=== PATIENT | female | born 1985 | race Caucasian/White ===

== ENCOUNTER 2022-02-16 07:24 | Day surgery (SDC) | payer OTHER, SELFPAY ==
[2022-02-10 12:37] VITALS: BMI 56.2
--- NOTE | 2022-02-14 16:40 | HP_ITS ---
DATE OF SERVICE: 02/16/2022 PREOPERATIVE DIAGNOSIS: Plantar fasciitis, left foot. PLANNED PROCEDURE: Left foot [place] plantar fasciotomy. PAST MEDICAL HISTORY: Hip, back and knee pain, depression, hiatal hernia, chronic sinusitis, chickenpox. CURRENT MEDICATIONS: Amlodipine, hydroxyzine, Lamictal, Lexapro, methyl folate, gabapentin, multivitamin, omeprazole, vitamin B6, B12, D3, Prilosec. SURGICAL HISTORY: Appendectomy. FAMILY HISTORY: Arthritis. SOCIAL HISTORY: Patient is a nonsmoker. Denies any illicit drug use. She is with no children. 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 ALLERGIES: METRONIDAZOLE AND INDOMETHACIN. HOSPITALIZATIONS: Denies. REVIEW OF SYSTEMS: Within normal limits. HISTORY OF PRESENT ILLNESS: This is a 36-year-old female presents with tenderness, chronic pain, sharp pain and stiffness of the proximal aspect of the plantar heel on the left foot. Pain has been present for quite a while several months. Walking has become difficult, especially since she tore her left meniscus in her knee. She has tried multiple conservative therapies including rest, diclofenac intervals, orthotics, change in shoes, physical therapy, E patch, and an MRI, which showed chronic plantar fasciitis. PHYSICAL EXAMINATION: GENERAL: Reveals a pleasant, alert, well-nourished well-developed, well-hydrated individual who demonstrates proper habitus and body hygiene, in no acute distress. She is oriented x3. NEUROLOGICAL: Reveals intact sensorium. Pain sensation is normal. Vibratory sensation is intact. Pinprick sensation is normal. Denies any anesthesias, burning paresthesias or tingling bilaterally. VASCULAR: DP and PT pulses are 3/4 bilaterally. Capillary refill is immediate to all digits. Skin temperature, elasticity and turgor is normal. Pigmentation is normal. There is no edema. DERMATOLOGICAL: Reveals normal texture, elasticity and turgor. There are no masses. Interspaces are clear. ORTHOPEDIC: Shows muscle strength 5/5 in a symmetrical fashion bilaterally heel pain on inspection reveals pain on palpation of the plantar fascia, the medial and central bands, intrinsic musculature, infracalcaneal bursa and medial calcaneal tubercle and pain with heel compression is present to the left heel. PLAN: Patient is scheduled for surgery for [place] plantar fasciotomy of the left foot procedure to treat the patient's foot problem was discussed in detail with the patient, reviewed the risks of the procedure versus not having the procedure. We discussed the potential surgical complications, which are included but not limited to pain, swelling, bleeding, scarring numbness infection delayed or nonhealing, recurrence, failure of the procedure, need for further surgery, and loss of toe, foot, life, or limb. Discussed the use of local and IV anesthesia and the usual postoperative course. No guarantees were given. The patient indicated a verbal understanding the above-mentioned surgery and questions were answered to her satisfaction. Patient would like to proceed with surgical treatment. She will obtain preoperative labs and medical clearance from her primary care physician. She is made to stop any and all blood thinners at least 1 week prior to surgery and aware that driving may not be allowed during a portion of the postoperative. The patient was given a prescription for Percocet. She can take Tylenol as well when not taking the Percocet for any postoperative pain, patient to avoid any nonsteroidal anti-inflammatories such as Motrin or ibuprofen and ice postoperatively. She will be partial weightbearing on the left foot in a surgical shoe or a cast boot, which patient has already. The patient will follow up in my office for all postoperative followup care. CHASE Lagos / [phone]
--- NOTE | 2022-02-15 09:32 | P.CONAN_ITS ---
Documented by User: Elma Londono NP 02/15/22 09:34 HPI - Anesthesia Eval Consult details Narrative: 36yo F for Left Plantar Fasciotomy w/ [place] PMF[facility] Past Medical History Medical History Anxiety Arthritis Fatty liver GERD (gastroesophageal reflux disease) History of palpitations HTN (hypertension) Incomplete right bundle branch block (RBBB) YONATHAN on CPAP Personal history of COVID-19 Wears contact lenses Surgical History Surgical History (Updated 02/10/22 @ 12:35 by Sherine Barrera RN) Hx of appendectomy Hx of cholecystectomy Social History Social History Are you a primary post acute care nurse practitioner to a significant other at home: No Do you presently have visiting nurse or other home services: No Patient Tobacco Use Status: Never used Tobacco Use of substances other than those prescribed or required for medical reasons: No Have you been hit, kicked, punched, or otherwise hurt by someone within the past year? If so, by whom?: No Are you DNR?: No Advance Directives: No Advance Directives Information Provided: Yes Advance Directives on File: No Patient : No FDLMP: 01/19/2022 : No Poor oral hygiene: No Meds Allergies Allergy/AdvReac Type Severity Reaction Status Date / Time indomethacin Allergy Intermediate Palpitations, Verified 02/16/22 07:36 n/v, diaphoresis metronidazole Allergy Hives Verified 02/16/22 08:09 Home Medications Medication Instructions Recorded Confirmed Last Taken Type L-Methylfolate DAILY 02/10/22 Unknown History Vitamin B-12 PO DAILY 02/10/22 Unknown History Vitamin D3 PO DAILY 02/10/22 Unknown History amlodipine 10 mg tablet 1 tab PO BEDTIME 02/10/22 02/10/22 Unknown History escitalopram oxalate 20 mg tablet 1.5 tab PO DAILY 02/10/22 02/10/22 02/16/22 06:00 History gabapentin 300 mg capsule 300 mg PO BID 02/10/22 02/10/22 02/16/22 06:00 History hydroxyzine HCl PO PRN 02/10/22 Unknown History lamotrigine 200 mg tablet 1 tab PO BEDTIME 02/10/22 02/10/22 Unknown History multivitamin 1 tab PO DAILY 02/10/22 02/10/22 Unknown History omeprazole 40 mg capsule,delayed 1 cap PO DAILY 02/10/22 02/10/22 02/16/22 06:00 History release Exam Exam Date and Time: February 15, [id number] Height,Weight and Vital Signs: Height 5 ft 8.5 in Weight 170.097 kg Narrative Narrative: EK NSR @ 73 Incomplete RBBB No significant change from 04/2021 Assessment and Plan Assessment Anesthesia Assessment: Chart Reviewed Documented by User: Cain Gillespie MD 02/16/22 09:01 [facility] Past Medical History Medical History Anxiety Arthritis Fatty liver GERD (gastroesophageal reflux disease) History of palpitations HTN (hypertension) Incomplete right bundle branch block (RBBB) YONATHAN on CPAP Personal history of COVID-19 Wears contact lenses Family History Family history of problems with anesthesia: No Surgical History Surgical History (Updated 02/10/22 @ 12:35 by Sherine Barrera RN) Hx of appendectomy Hx of cholecystectomy History of Problems with Anesthesia: No Social History Social History Are you a primary post acute care nurse practitioner to a significant other at home: No Do you presently have visiting nurse or other home services: No Patient Tobacco Use Status: Never used Tobacco Use of substances other than those prescribed or required for medical reasons: No Have you been hit, kicked, punched, or otherwise hurt by someone within the past year? If so, by whom?: No Are you DNR?: No Advance Directives: No Advance Directives Information Provided: Yes Advance Directives on File: No Patient : No FDLMP: 01/19/2022 : No Poor oral hygiene: No Meds Allergies Allergy/AdvReac Type Severity Reaction Status Date / Time indomethacin Allergy Intermediate Palpitations, Verified 02/16/22 07:36 n/v, diaphoresis metronidazole Allergy Hives Verified 02/16/22 08:09 Home Medications Medication Instructions Recorded Confirmed Last Taken Type L-Methylfolate DAILY 02/10/22 Unknown History Vitamin B-12 PO DAILY 02/10/22 Unknown History Vitamin D3 PO DAILY 02/10/22 Unknown History amlodipine 10 mg tablet 1 tab PO BEDTIME 02/10/22 02/10/22 Unknown History escitalopram oxalate 20 mg tablet 1.5 tab PO DAILY 02/10/22 02/10/22 02/16/22 06:00 History gabapentin 300 mg capsule 300 mg PO BID 02/10/22 02/10/22 02/16/22 06:00 History hydroxyzine HCl PO PRN 02/10/22 Unknown History lamotrigine 200 mg tablet 1 tab PO BEDTIME 02/10/22 02/10/22 Unknown History multivitamin 1 tab PO DAILY 02/10/22 02/10/22 Unknown History omeprazole 40 mg capsule,delayed 1 cap PO DAILY 02/10/22 02/10/22 02/16/22 06:00 History release Exam Airway Mallampati Class: I TM Dist: >3cm Neck ROM: Full Loose/Missing/Broken Teeth: No Assessment and Plan Assessment Anesthesia Assessment: Anesthesia Plan Discussed Final Anesthetic Review Family History of Problems with Anesthesia: No History of Problems with Anesthesia: No NPO: Yes ASA Class: III Final Preanesthetic Review: Meds/Allgs Chart Reviewed, Consent Obtained/Reviewed and Anes Risks/Benef Reviewed Patient Risk: High Procedure Risk: Low Anesthetic Plan Anesthetic Plan: GA Disposition: Standard PACU
[2022-02-16] VITALS (10 sets, daily range): BP systolic 118–165; BP diastolic 52–80; PULSE 75–120; RESP 16–24; TEMP 36.3–36.7; O2SAT 98–100
[2022-02-16 07:49] LABS: UPreg QC Valid YES; Urine Pregnancy NEGATIVE (NEGATIVE)
[2022-02-16] MEDS: Lactated Ringers 1,000 ML 100 ML IVCONT (08:05)
--- NOTE | 2022-02-16 08:26 | MHC.SHP ---
Pre-Procedural Eval Section A Date of Service: 02/16/22 The patient is an INPATIENT: No Changes since office visit: No Cold of Flu in the past 2 weeks, No New Medical Problems, No Changes in Medication and No Patient answered all questions The History & Physical has been completed within 30 days and I have reviewed it.: Yes Section B Chief Complaint: plantar fibromatosis Allergies: Allergies Allergy/AdvReac Type Severity Reaction Status Date / Time indomethacin Allergy Intermediate Palpitations, Verified 02/16/22 07:36 n/v, diaphoresis metronidazole Allergy Hives Verified 02/16/22 08:09 Plan I have reviewed the history and physical and performed a pertinent physical examination on my patient. No changes have occurred unless specified.
--- NOTE | 2022-02-16 09:10 | P.BOP_ITS ---
Brief Operative Note Date of Service: 02/16/22 Pre-op diagnosis: Left plantar fasciitis Post-op diagnosis: same Procedure: Left [place] Plantar Fasciotomy Implants: None Surgeon: Neisha Cullen Anesthesia: GLMA Was an [employer] used for this Procedure?: Yes [employer]: Dylan Gallardo Estimated blood loss (mL): 1 Tourniquet time (min): 7 Condition: stable Disposition: PACU
[2022-02-16] MEDS: LORazepam 2 MG/ML VIAL 1 MG IVPUSH (10:00)
[2022-02-16] MEDS: Racepinephrine HCL 0.5 ML VIAL.NEB INHALE (10:07)
--- NOTE | 2022-02-21 02:56 | OP_ITS ---
SURGEON: Neisha Cullen DPM PREOPERATIVE DIAGNOSIS: Plantar fasciitis, left foot. POSTOPERATIVE DIAGNOSIS: Plantar fasciitis, left foot. PROCEDURE PERFORMED: Left foot [place] plantar fasciotomy. ESTIMATED BLOOD LOSS: <1 cc COMPLICATIONS: None. ANESTHESIA: LMA with local consisting of 2% lidocaine plain and 0.25% Marcaine plain. ASSISTANTS: Dylan Gallardo DPM. SPECIMENS: None HEMOSTASIS: Pneumatic ankle tourniquet set at 250 mmHg for 7 minutes. INDICATIONS FOR SURGERY: The patient had painful plantar fasciitis noted to the left foot that had failed conservative therapies. The patient has tried a multitude of conservative therapies without any significant relief. The above-mentioned surgery was discussed in detail with the patient including risks, benefits, and possible complications. No guarantees were given, and written and oral informed consent was obtained. PROCEDURE IN DETAIL: The patient was brought into the operating room and placed on the operating table in the supine position. 3 g of cefazolin was administered as a prophylactic preoperative antibiotic. The left foot was anesthetized with the above mentioned anesthetic. The patient was put under LMA anesthesia and then the left foot was scrubbed, prepped, and draped in a sterile manner. Attention was directed to the left foot where pneumatic ankle tourniquet was inflated, after the foot was exsanguinated. Attention was then directed to the plantar aspect of the left heel. A grid approximately 0.5 cm apart was denoted on the plantar foot in the medial and lateral aspect of the plantar heel. These areas of maximal tenderness were palpated in the preoperative area. Using a 0.054 K-wire, percutaneous stab incisions were made in the 0.5 cm grid. The K-wire was removed. The [place] wand was then introduced and the plantar fascia was ablated twice through each percutaneous hole. The [place] wand was removed. The area was cleansed with normal sterile saline. The incision was then dressed with Steri-Strips, Betadine-soaked gauze, 4x4s, fluffs, Kerlix, cast padding, and an Nito bandage. Pneumatic ankle tourniquet was deflated after 7 minutes and prompt capillary refill was noted to all 5 digits. The patient tolerated procedure and anesthesia well. She was transferred to the recovery room with vital signs stable and vascular status at preoperative levels. Following a period of postoperative recovery, the patient will be discharged home with written and oral postoperative instructions. The patient is to avoid any NSAIDs or anti-inflammatories. Patient can take Tylenol or Percocet as needed for pain. The patient will be partial weightbearing to the left foot with crutches in a surgical shoe as she is not able to tolerate a cast boot and will follow up in my office for all postoperative followup care. Neisha Cullen DPM LP/SHAHANA / [phone] [place]
== END 2022-02-16 11:53 | disposition home or self-care (01) ==
PROVIDERS: Nurse Practitioner; PCP Nurse Practitioner Family; Visit Provider Podiatrist
PROC: (CPT 28008; principal; 2022-02-16 08:40)
DX: M72.2 Plantar fascial fibromatosis (principal); I10 Essential (primary) hypertension; J32.9 Chronic sinusitis, unspecified; G47.33 Obstructive sleep apnea (adult) (pediatric); Z79.899 Other long term (current) drug therapy; Z99.89 Dependence on other enabling machines and devices; Z88.8 Allergy status to other drugs, medicaments and biological substances; Z86.16 Personal history of COVID-19
CPT/HCPCS: 28008; 81025; 94640; J0330; J0690; J1100; J2060; J2250; J3010